=== PATIENT | female | born 2000 | race Hispanic/Latino ===

== ENCOUNTER 2021-09-27 23:13 | Emergency (ER) | payer SELFPAY | END 2021-09-28 01:09 | disposition home or self-care (01) | LOC: CSHERS 23:13 | DX: F41.9 Anxiety disorder, unspecified (principal); R00.0 Tachycardia, unspecified; R20.2 Paresthesia of skin | CPT/HCPCS: 71045; 93005 ==

== ENCOUNTER 2025-03-19 16:08 | Emergency (ER) | payer BC, OTHER ==
[2025-03-19] MEDS ORDERED: Acetaminophen 500 MG TAB ONE (18:25)
[2025-03-19] MEDS ORDERED: Methocarbamol 500 MG TAB ONE (18:26)
[2025-03-19 18:39] LABS: Pregnancy Test - Urine (BHCG) Negative (Negative); Pregu Control Background? CLEAR/WHITE (CLR/WHITE); Pregu Control Bar Appear? YES (CONTROL BAR)
== END 2025-03-19 20:00 | disposition home or self-care (01) ==
LOC: CSHERS 16:08
DX: M79.10 Myalgia, unspecified site (principal); V89.2XXA Person injured in unspecified motor-vehicle accident, traffic, initial encounter
CPT/HCPCS: 70450; 72125; 81025